=== PATIENT | male | born 1985 | race African-American/Black ===

== ENCOUNTER 2017-01-13 18:10 | Emergency (ER) | payer OTHER ==
[2017-01-13] MEDS ORDERED: cefTRIAXone 1 GM VIAL IM STA (18:32)
[2017-01-13] MEDS ORDERED: AZITHROMYCIN 250 MG TABLET PO STA (18:33)
[2017-01-13] MEDS ORDERED: AZITHROMYCIN 250 MG TABLET PO ONE (18:35)
[2017-01-13] MEDS ORDERED: cefTRIAXone 1 GM VIAL ONE (18:35)
[2017-01-13] MEDS ORDERED: LIDOCAINE 1% 2 ML VIAL ONE (18:36)
== END 2017-01-13 19:43 | disposition home or self-care (01) ==
DX: Z20.2 Contact with and (suspected) exposure to infections with a predominantly sexual mode of transmission (principal); F17.200 Nicotine dependence, unspecified, uncomplicated
CPT/HCPCS: 81003; 87491; 87591; 96372; 99283; A9270

== ENCOUNTER 2017-04-23 19:14 | Emergency (ER) | payer OTHER ==
[2017-04-23] MEDS ORDERED: SULFAMETH/TRIMETH DS 800/160 MG TABLET PO STA (22:27)
--- NOTE | 2017-04-23 22:28 | ED Physician Documentation ---
History of Present Illness - Stated complaint Stated Complaint: BOIL PX - Chief complaint Chief Complaint: Wound - History obtained from History obtained from: Patient - History of Present Illness Timing: How many weeks ago (1) - Additonal information Additional information: 31-year-old male has again developed some pain and a small mass in the perineal rectal area on the right side and he has become concerned of what this is. He has had something similar to this previously and states that this feels different. He has not had any drainage from the area he did have an area of swelling that was larger than it is now it has gone down but he is concerned and he states that he is a hypochondriac and that his girlfriend has left town she would normally talk him down from something like being evaluated.He denies homosexual intercourse and he denies other symptoms of STD. He is concerned about STD. He denies urinary symptoms or urethral discharge. Review of Systems Constitutional: denies: Fever Eyes: denies: Decreased vision Ears: denies: Ear pain Nose: denies: Congestion Respiratory: denies: Dyspnea, Cough GI: denies: Nausea, Vomiting : denies: Dysuria, Frequency, Discharge Skin: denies: Rash Musculoskeletal: denies: Neck pain, Back pain, Extremity pain PD PAST MEDICAL HISTORY - Past Medical History Past Medical History: Yes Neuro: None Other Past Medical History: Pilonidal Cyst - Past Surgical History Past Surgical History: Yes - Present Medications Home Medications: Ambulatory Orders Medication Instructions Recorded Confirmed Sulfamethoxazole/Trimethoprim 1 each PO BID #10 tablet 04/23/17 [Sulfamethoxazole-Tmp Ds Tablet] - Allergies Allergies/Adverse Reactions: Allergies Allergy/AdvReac Type Severity Reaction Status Date / Time No Known Drug Allergies Allergy Verified 04/23/17 19:24 - Social History Does the pt smoke?: Yes Smoking Status: Current every day smoker Does the pt drink ETOH?: Yes Does the pt have substance abuse?: No - Immunizations Immunizations are current?: Yes - POLST Patient has POLST: No PD ED PE NORMAL - Vitals Vital signs reviewed: Yes (Hypertension) - General General: No acute distress, Well developed/nourished - HEENT HEENT: Atraumatic, PERRL - Respiratory Respiratory: No respiratory distress - Rectal Rectal: Other (There is a less than 1 cm mass in the right perirectal area that is more toward the cheek than the rectum and there is no evidence of drainage there is no fluctuance there is mildly tender without surrounding erythema. There are no hemorrhoids today and there is no pilonidal involvement.) - Back Back: No CVA TTP, No spinal TTP - Derm Derm: Normal color, Warm and dry, No rash - Extremities Extremities: No deformity, No edema - Neuro Neuro: No motor deficit, No sensory deficit - Psych Psych: Normal mood, Normal affect Results - Vitals Vitals: Vital Signs - 24 hr 04/23/17 19:25 Temperature 36.9 C Heart Rate 94 Respiratory 16 Rate Blood Pressure 128/82 H O2 Saturation 97 Oxygen O2 Source Room air PD MEDICAL DECISION MAKING - ED course Complexity details: considered differential, d/w patient ED course: 31-year-old male with over concerns of a small boil on the side of his buttocks. He is treated with Septra here in the emergency department and we will prescribe a short course of antibiotic and warm compress. Departure - Departure Disposition: 01 Home, Self Care Clinical Impression: Perirectal abscess Condition: Stable Instructions: ED Staph Infec Abx Tx Only Follow-Up: Your, doctor [Other] Prescriptions: Sulfamethoxazole/Trimethoprim [Sulfamethoxazole-Tmp Ds Tablet] 1 each PO BID # 10 tablet
[2017-04-23] MEDS ORDERED: SULFAMETH/TRIMETH DS 800/160 MG TABLET PO ONE (22:33)
[2017-04-23 22:47] VITALS: BP 130/62
== END 2017-04-23 22:46 | disposition home or self-care (01) ==
LOC: ED 19:14
DX: K61.1 Rectal abscess (principal); F17.200 Nicotine dependence, unspecified, uncomplicated
CPT/HCPCS: 99283; A9270

== ENCOUNTER 2018-07-11 15:23 | Emergency (ER) | payer OTHER ==
[2018-07-11] MEDS ORDERED: BENZOCAINE/MENTHOL LOZENGE MM STA (15:35)
[2018-07-11] MEDS ORDERED: DEXAMETHASONE 10 MG/ML VIAL PO STA (15:35)
[2018-07-11] MEDS ORDERED: CHERRY SYRUP 10 ML UDC PO ONE (15:40)
--- NOTE | 2018-07-11 15:43 | ED Physician Documentation ---
History of Present Illness - Stated complaint Stated Complaint: MOUTH PAIN - Additonal information Additional information: hx from pt 32 male healthy ate super hot food out of the microwave and now has a blister on his palate, a swollen uvula and a whitish tongue with denuded spots he is very worried and wants to be "tested for everything" when i ask for some guidance he says "for HIV and all the STDs" he denies any dc, and risk sex, any IVDA, he just wants t be sure he is OK he has a PMD at [facility] who can follow up the results which wont come back today Review of Systems Constitutional: denies: Fever Throat: reports: Oral lesions / sores : denies: Discharge, Testicular pain Immunocompromised: denies: Immunocompromised PD PAST MEDICAL HISTORY - Past Surgical History Past Surgical History: Yes - Present Medications Home Medications: Ambulatory Orders Medication Instructions Recorded Confirmed Sulfamethoxazole/Trimethoprim 1 each PO BID #10 tablet 04/23/17 [Sulfamethoxazole-Tmp Ds Tablet] Dextromethorphan/Benzocaine 1 each PO Q4H PRN #20 lozenge 07/11/18 [Cepacol Sorethroat-Cough Rey] - Allergies Allergies/Adverse Reactions: Allergies Allergy/AdvReac Type Severity Reaction Status Date / Time No Known Drug Allergies Allergy Verified 04/23/17 19:24 - Social History Does the pt smoke?: Yes Smoking Status: Current every day smoker Does the pt drink ETOH?: Yes Does the pt have substance abuse?: No - Immunizations Immunizations are current?: Yes - POLST Patient has POLST: No PD ED PE NORMAL - Vitals Vital signs reviewed: Yes - HEENT HEENT: Moist mucous membranes, Other (whitish tongue with some small central areas that are denuded, no thrush, blister on soft palate, erythematous mildly swollen uvula) - Neck Neck: Supple, no meningeal sign - Cardiac Cardiac: RRR - Respiratory Respiratory: No respiratory distress, Clear bilaterally Results - Vitals Vitals: Vital Signs - 24 hr 07/11/18 15:33 Temperature 36.5 C Heart Rate 82 Respiratory 18 Rate Blood Pressure 149/89 H O2 Saturation 100 Oxygen O2 Source Room air - Labs Labs: Laboratory Tests 07/11/18 15:33 Group A Strep Rapid Negative PD MEDICAL DECISION MAKING - Sepsis Event Vital Signs: Vital Signs - 24 hr 07/11/18 15:33 Temperature 36.5 C Heart Rate 82 Respiratory 18 Rate Blood Pressure 149/89 H O2 Saturation 100 Oxygen O2 Source Room air Departure - Departure Disposition: 01 Home, Self Care Clinical Impression: Mouth burn Qualifiers: Encounter type: initial encounter Qualified Code(s): T28.0XXA - Burn of mouth and pharynx, initial encounter Condition: Good Prescriptions: Dextromethorphan/Benzocaine [Cepacol Sorethroat-Cough Rey] 1 each PO Q4H PRN #20 lozenge PRN Reason: sore mouth Comments: The strep test was negative It looks like you have burned your mouth The steroid dose will decrease the swelling of your uvula. You can use cepacol lozenges as needed for discomfort Per your request, tests have been sent for HIV, hepatitis A B and C, gonorrhea and chlamydia Those tests will not come back today - please follow up with your PMD at the [facility] and have him/her get the results from the [facility] and go over them with you - the hospital number is
[2018-07-11 16:32] VITALS: BP 134/88
[2018-07-13 13:12] LABS: HEPATITIS A IGM NON-REACTIVE (NON-REACTIVE); HEPATITIS B CORE ANTIBODY IGM NON-REACTIVE (NON-REACTIVE); HEPATITIS B SURFACE ANTIGEN NON-REACTIVE (NON-REACTIVE); HEPATITIS C ANTIBODY NON-REACTIVE (NON-REACTIVE)
[2018-07-13 14:26] LABS: HIV AG/AB 4TH GEN NON-REACTIVE (NON-REACTIVE)
== END 2018-07-11 16:42 | disposition home or self-care (01) ==
LOC: ED 15:23
DX: T28.0XXA Burn of mouth and pharynx, initial encounter (principal); X10.1XXA Contact with hot food, initial encounter; F17.200 Nicotine dependence, unspecified, uncomplicated
CPT/HCPCS: 36415; 80074; 87070; 87389; 87430; 87491; 87591; 99283; A9270